=== PATIENT | female | born 1995 | race Caucasian/White ===

== ENCOUNTER 2018-09-24 12:16 | Emergency (ER) | payer MEDICAID ==
[~2018-09-24] VITALS: Ht 167.6 cm; Wt 102.1 kg
[2018-09-24 12:34] VITALS: BP 155/93
[2018-09-24 13:01] LABS: Urine Bacteria NONE SEEN /hpf (None Seen); Urine Blood Negative /uL (Negative); Urine Mucus FEW (None Seen); Urine WBC 12 /hpf (0 - 5)
[2018-09-24] MEDS ORDERED: ONDANSETRON HCL 4 MG/2 ML VIAL ONE (14:34)
[2018-09-24] MEDS ORDERED: ONDANSETRON HCL 4 MG/2 ML VIAL IV ONE (14:45)
[2018-09-24] MEDS ORDERED: SODIUM CHLORIDE 0.9% 1,000 ML IV ONE (14:45)
[2018-09-24] MEDS ORDERED: PROMETHAZINE HCL 25 MG/ML 1ML IV PRN (15:15)
[2018-09-24 15:48] LABS: Basophils # (auto) 0 uL; Basophils % (auto) 0.3 % (0.0-2.0); Eosinophils # (auto) 0 uL; Eosinophils % (auto) 0.2 % (0.0-7.0); Hematocrit 46.7 % (36.0-46.0); Hemoglobin 15.6 g/dL (12.2-16.2); Lymphocytes # (auto) 1.2 uL; Mean Corpuscular Hemoglobin 30.7 pg (28.0-32.0); Mean Corpuscular Hgb Conc. 33.4 g/dL (32.0-36.0); Mean Corpuscular Volume 91.9 fL (80.0-100.0); Monocytes # (auto) 0.5 uL; Monocytes % (auto) 4.4 % (0.0-12.0); Neutrophils # (auto) 10.5 uL; Neutrophils % (auto) 85.1 % (37.0-80.0); Platelet Count (auto) 266 10^3/uL (140-450); Red Blood Cells 5.08 10^6/uL (4.0-5.20); Red Cell Distribution Width 12.8 % (11.8-14.3); White Blood Cell 12.3 10^3/uL (4.4-10.8)
[2018-09-24 15:56] LABS: BUN/Creatinine Ratio 14.1; Calcium 9.6 mg/dL (8.5-10.1); Magnesium 2.1 mg/dL (1.6-2.6); Potassium 3.8 mmol/L (3.5-5.1)
== END 2018-09-24 17:21 | disposition home or self-care (01) ==
LOC: ER 12:16
DX: O21.1 Hyperemesis gravidarum with metabolic disturbance (principal); O23.41 Unspecified infection of urinary tract in pregnancy, first trimester; O99.331 Smoking (tobacco) complicating pregnancy, first trimester; F17.210 Nicotine dependence, cigarettes, uncomplicated; O99.321 Drug use complicating pregnancy, first trimester; F12.10 Cannabis abuse, uncomplicated; Z3A.01 Less than 8 weeks gestation of pregnancy
CPT/HCPCS: 36415; 76801; 80048; 81001; 81025; 83690; 83735; 84702; 85025; 96361; 96374; 99284; J2405; J7030

== ENCOUNTER 2020-03-12 09:34 | Emergency (ER) | payer MEDICAID ==
[~2020-03-12] VITALS: Ht 167.6 cm; Wt 99.8 kg
[2020-03-12 11:23] VITALS: BP 138/94
[2020-03-12] MEDS ORDERED: ACETAMINOPHEN/CODEINE#3 (300/30mg) TAB PO ONE (12:00)
== END 2020-03-12 13:21 | disposition home or self-care (01) ==
LOC: ER 09:34
DX: S52.122A Displaced fracture of head of left radius, initial encounter for closed fracture (principal); F17.210 Nicotine dependence, cigarettes, uncomplicated; W19.XXXA Unspecified fall, initial encounter; Y93.89 Activity, other specified; Y92.89 Other specified places as the place of occurrence of the external cause; Y99.8 Other external cause status
CPT/HCPCS: 29105; 29125; 73080; 73090